=== PATIENT | male | born 1960 | race African-American/Black ===

== ENCOUNTER 2019-06-13 15:04 | Emergency (ER) | payer SELFPAY, OTHER | END 2019-06-13 19:00 | disposition home or self-care (01) | LOC: FTE 15:04 | DX: S16.1XXA Strain of muscle, fascia and tendon at neck level, initial encounter (principal); S49.91XA Unspecified injury of right shoulder and upper arm, initial encounter; S39.92XA Unspecified injury of lower back, initial encounter; V49.49XA Driver injured in collision with other motor vehicles in traffic accident, initial encounter | CPT/HCPCS: 72040; 72100; 72125; 73030-RT; 99284-25 ==